=== PATIENT | female | born 1955 | race Caucasian/White ===

== ENCOUNTER 2019-05-29 16:02 | Emergency (ER) | payer MEDICARE, OTHER ==
[~2019-05-29] VITALS: Ht 157.5 cm; Wt 54.0 kg
--- NOTE | 2019-05-29 16:05 | NUR ---
[facility]IS [facility] FROM [facility], HEMATOMA TO RIGHT PARIETAL AREA SUSTAINED WHEN SHE PASSED OUT WHILE WAITING FOR A BUS AT 1300, TO ER BED 10, HOOKED TO MONITOR, CHANGED TO HOSP GOWN, PROVIDED W WARM BLANKET, PATIENT AOx4, BREATHING EVEN AND UNLABORED, AWAITING MD SANCHEZ.
--- NOTE | 2019-05-29 17:32 | NUR ---
DR MCKINNEY AT BEDSIDE
[2019-05-29] MEDS ORDERED: LEVO100T9 PO (17:47)
[2019-05-29] MEDS ORDERED: VITA1TAB56 PO (17:47)
[2019-05-29] MEDS ORDERED: ERGO500040 PO (17:47)
[2019-05-29] MEDS ORDERED: PROP15DR OP (17:47)
[2019-05-29] MEDS ORDERED: AMLO10TA4 PO (17:47)
[2019-05-29] MEDS ORDERED: ACET-73 PO (17:47)
[2019-05-29] MEDS ORDERED: SENN-168 PO (17:47)
[2019-05-29 17:58] LABS: BASOPHILS % (AUTO) 0.4 % (0.0-2.0); EOSINOPHILS % (AUTO) 0.2 % (0.0-6.0); HEMATOCRIT 42 % (33-45); HEMOGLOBIN 13.9 g/dL (11.5-14.8); LYMPHOCYTES # (AUTO) 2.6 /CMM (0.8-4.8); LYMPHOCYTES % (AUTO) 22.2 % (20.0-44.0); MEAN CORPUSCULAR HGB CONC 33 g/dl (31.0-36.0); MEAN CORPUSCULAR VOLUME 93 fL (82-100); MONOCYTES # (AUTO) 0.5 /CMM (0.1-1.30); MONOCYTES % (AUTO) 4.5 % (2.0-12.0); NEUTROPHILS # (AUTO) 8.4 /CMM (1.8-8.9); NEUTROPHILS % (AUTO) 72.7 % (43.0-81.0); PLATELET COUNT (AUTO) 252 /CMM (150-450); RED BLOOD CELL COUNT(AUTO) 4.48 MIL/uL (4.0-5.2); WHITE BLOOD COUNT (AUTO) 11.6 K/uL (4.3-11.0)
[2019-05-29 18:03] LABS: CALCIUM, SERUM 9.3 mg/dL (8.5-10.1); CARBON DIOXIDE 30 mmol/L (21-32); CHLORIDE 106 mmol/L (98-107); GLUCOSE 94 mg/dL (74-106); POTASSIUM 3.8 mmol/L (3.5-5.1); SODIUM SERUM 144 mmol/L (136-145); UREA NITROGEN, BLOOD 16 mg/dL (7-18)
[2019-05-29 20:14] LABS: APPEARANCE,URINE Clear (CLEAR); BILIRUBIN,URINE Negative (NEGATIVE); BLOOD, URINE Small Ery/uL (NEGATIVE); COLOR,URINE Yellow (YELLOW); KETONES,URINE Negative (NEGATIVE); LEUKOCYTE ESTERASE ,URINE Negative (NEGATIVE); NITRITE, URINE Negative (NEGATIVE); PH,URINE 6.5 (5.0-8.0); PROTEIN,URINE Negative (NEGATIVE); UGLUCOSE Negative (NEGATIVE); UROBILINOGEN,URINE 0.2 EU/dL (0.2)
[2019-05-29 20:19] LABS: BACTERIA,URINE Few /HPF (None Seen); SQUAMOUS EPITHELIAL CELL,UR Few /HPF (None Seen); WBC,URINE 0-2 /HPF (0-3)
[2019-05-29] MEDS ORDERED: IBUPROFEN 600 MG TABLET PO ONE ×2 (20:28→20:30)
--- NOTE | 2019-05-29 20:36 | NUR ---
Patient discharged to home in stable condition. Written and verbal after care instructions given. Patient verbalizes understanding of instruction.
[2019-05-29 20:39] VITALS: BP 117/85
== END 2019-05-29 20:41 | disposition home or self-care (01) ==
LOC: ER 16:11
DX: S00.03XA Contusion of scalp, initial encounter (principal); R55 Syncope and collapse; I10 Essential (primary) hypertension; F17.200 Nicotine dependence, unspecified, uncomplicated; Z79.899 Other long term (current) drug therapy; W18.39XA Other fall on same level, initial encounter; Y93.89 Activity, other specified; Y92.521 Bus station as the place of occurrence of the external cause; Y99.8 Other external cause status
CPT/HCPCS: 36415; 70450-TC; 71045-TC; 80048-TC; 81000-TC; 84484-TC; 85025-TC